=== PATIENT | female | born 1945 | race Caucasian/White ===

== ENCOUNTER 2018-11-05 18:13 | Emergency (ER) | payer SELFPAY ==
[~2018-11-05] VITALS: Ht 167.6 cm; Wt 81.6 kg
[2018-11-05] MEDS ORDERED: LORAZEPAM0.5 MG ORAL (18:24)
[2018-11-05] MEDS ORDERED: PROZAC10 MG ORAL (18:24)
[2018-11-05] MEDS ORDERED: IBUPROFEN600 MG ORAL (18:45)
[2018-11-05] MEDS ORDERED: NORCO 5-325 TA1 EACH ORAL (18:45)
[2018-11-05 18:48] VITALS: BP 149/85
[2018-11-05] MEDS: HYDROcodone/Acetamin 7.5/325 tab ORAL ONE (18:48)
[2018-11-05] MEDS: Augmentin 875mg Tab ORAL ONE (18:48)
[2018-11-05 18:49] VITALS: BP 161/82
[2018-11-05] MEDS ORDERED: AUGMENTIN 875-1 EAC1 ORAL (18:53)
--- NOTE | 2018-11-05 20:08 | Emergency Room Report ---
History of Present Illness General Chief Complaint: Toothache Source: Patient Present Illness HPI Patient is a 73-year-old female presenting for dental pain. She states that this began 3 days prior. Described as a 9 out of 10 dull ache to the left upper teeth. Worse with chewing. She denies any injury to the area. She denies other symptoms including nausea, vomiting, fever, chills, sore throat, cough, swelling. She states that she wanted to see a dentist but they're not in office until Wednesday. She is with her daughter who states she will take the patient to see dentist on wednesday. Allergies: Coded Allergies: No Known Allergies (Unverified , 11/05/18) Patient History Past Medical History: see triage record Pertinent Family History: none Reviewed Nursing Documentation: PMH: Agreed; PSxH: Agreed Nursing Documentation-PMH Past Medical History: No Stated History Review of Systems All Other Systems: negative except mentioned in HPI Physical Exam Vital Signs Date Time Temp Pulse Resp B/P (MAP) Pulse Ox O2 Delivery O2 Flow Rate FiO2 11/05/18 18:17 98.1 85 17 161/82 98 Room Air Sp02 EP Interpretation: reviewed, normal General Appearance: no apparent distress, alert, GCS 15, non-toxic Head: normocephalic, atraumatic Eyes: bilateral eye normal inspection, bilateral eye PERRL ENT: hearing grossly normal, normal voice, uvula midline, moist mucus membranes , other - TTP over the L upper pre-molar Neck: full range of motion, supple/symm/no masses Musculoskeletal: back normal, gait/station normal, normal range of motion, non- tender Neurologic: alert, oriented x3, responsive, motor strength/tone normal, sensory intact, speech normal Psychiatric: judgement/insight normal, memory normal, mood/affect normal, no suicidal/homicidal ideation Skin: normal color, no rash, warm/dry, well hydrated Lymphatic: no adenopathy Medical Decision Making PA Attestation Dr. Steen is my supervising physician. Patient management was discussed with my supervising physician Diagnostic Impression: Primary Impression: Dental infection ER Course Patient is a 73-year-old female presenting for dental pain. Diagnoses considered but not limited to: Dental caries, dental abscess, toothache, gingivitis PE: Afebrile. NAD TTP over the L upper pre-molar. No surrounding erythema. No fluctuance. No bleeding. No tonsillar edema. She is given prescription for augmentin and pain medication and needs to F/U with dentist EUGEN[facility]. [facility] information given Last Vital Signs Date Time Temp Pulse Resp B/P (MAP) Pulse Ox O2 Delivery O2 Flow Rate FiO2 11/05/18 18:49 98.1 17 161/82 98 Room Air 11/05/18 18:48 79 Status: improved Disposition: HOME, SELF-CARE Condition: Improved Scripts Amoxicillin/Potassium Clav 875-125* (AUGMENTIN 875-125 TABLET*) 1 Each Tablet 1 TAB ORAL TWICE A DAY, #10 TAB Prov: TERZIANNAKUL P.A. 11/05/18 Hydrocodone Bit/Acetaminophen 5-325* (NORCO 5-325*) 1 Each Tablet 1 TAB ORAL Q6H PRN for For Pain, #10 TAB 0 Refills Prov: TERZIANNAKUL P.A. 11/05/18 Ibuprofen* (MOTRIN*) 600 Mg Tablet 600 MG ORAL Q8H PRN for For Pain, #30 TAB 0 Refills Prov: TERZIANNAKUL P.A. 11/05/18 Referrals: NOT CHOSEN IPA/MD,REFERRING (PCP) [facility](age 2-12) - Orth[facility] Clinic - Hours: Wed,Wed,, 8:15am and 1pm (new patient screening), Tues. 1pm. Emergency clinic Wednesday - Wednesday 8:30am and 1pm, Tu. 1pm. *Call to check if clinic is open; No appointment necessary for the first visit ( new patient screening), Arrive 15-30 minutes early as it is first come, first serve. Patient Instructions: Dental Pain Additional Instructions: I discussed my findings with the patient. All questions and concerns have been answered. Treatment and medication compliance have been addressed. I advised the patient that they need to follow up with PMD in 3-5 days. Return to ED if symptoms worsen, new symptoms arise, or if needed for any reason. Patient verbalized understanding of discharge instructions. The patient was told she needs to follow-up with a dentist as soon as possible NAKUL MENDOZA Nov 05, 2018 20:08
== END 2018-11-05 19:00 | disposition home or self-care (01) ==
LOC: EMR 18:59
DX: K04.7 Periapical abscess without sinus (principal)
CPT/HCPCS: 99283